=== PATIENT | male | born 1975 | race Native Hawaiian/Other Pacific Islander ===

== ENCOUNTER 2022-05-26 08:20 | Inpatient (IN) | payer MEDICAID, SELFPAY ==
[2022-05-26] VITALS (58 sets, daily range): BP systolic 131–177; BP diastolic 98–130; PULSE 54–114; RESP 0–21; TEMP 36.8–37.1; O2SAT 85–100; BMI 29.7
--- NOTE | 2022-05-26 08:27 | ECG_ITS ---
[facility] Test Date: 2022-05-26 Pat Name: John Hale Department: Room: Gender: Male Copy Room Technician: : 1975 Requested By: Tacos Reid Order Number: [id number] Gareth MD: Drew Galvan M.D. Measurements Intervals [place] Rate: 66 P: 33 ME: 188 QRS: -22 QRSD: 209 T: 95 QT: 478 QTc: 503 Interpretive Statements SINUS RHYTHM POSSIBLE LEFT ATRIAL ENLARGEMENT [-0.1mV P-WAVE IN V1/V2] LEFT BUNDLE BRANCH BLOCK [120+ ms QRS DURATION, 80+ ms Q/S IN V1/V2, 85+ ms R IN I/aVL/V5/V6] ST ELEVATION, CONSIDER LATERAL INJURY [MARKED ST ELEVATION W/O NORMALLY INFLECTED T-WAVE IN I/aVL/V5/V6] ACUTE WI No previous ECG available for comparison Electronically Signed On 05-27-2022 22:03:52 CDT by Drew Galvan M.D. [id number]
--- NOTE | 2022-05-26 08:29 | W.ED.CHESTPA ---
HPI - Chest Pain General: Chief Complaint: Chest Pain Stated Complaint: Chest Pain Time Seen by Provider: 05/26/22 08:23 Source: patient Mode of arrival: ambulatory History of Present Illness: 46-year-old male presents emergency room with complaint of chest pain that started 2 hours ago with a history of hypertension he has accompanying shortness of breath and pain radiating to the left arm. Pain is severe and crushing. He is not had any previous episodes like this before no known history of coronary artery disease no previous cardiac evaluation. Patient is not diabetic he does smoke and he does have a history of hypertension. MD complaint: chest pain Onset (ago): hour(s) (2) Timing of current episode: constant Prior episodes: No Onset: during rest Pain location: substernal Pain radiation: right arm and left arm Severity: severe Quality: tightness, aching and heaviness Relieving factors: nitroglycerin (Started after arrival in the emergency room) Exacerbating factors: nothing Associated symptoms: Reports diaphoresis, dyspnea and nausea; Deny abdominal pain, fever(s), leg edema, palpitations, sense of impending doom, syncope or vomiting Treatment prior to arrival: none Review of Systems Const: Reports: diaphoresis; Denies: fever(s), chills, fatigue or malaise ENMT: Denies: throat pain, ear or mastoid pain, nasal discharge or nasal congestion Card: Reports: chest pain; Denies: palpitations, irregular heart rhythm, edema or syncope Resp: Reports: dyspnea; Denies: productive cough or non-productive cough GI: Reports: nausea; Denies: abdominal pain or vomiting : Denies: flank pain, difficulty urinating, dysuria, urinary frequency or urinary urgency Skin/Breast: Denies: rash or pruritus PFSH ED PFSH: Medical History Atherosclerosis of coronary artery Hypertension ST elevation myocardial infarction (STEMI) Surgical History No pertinent past surgical history Social History Smoking and tobacco status: current every day smoker Alcohol intake: current Physical Exam Const: GENERAL APPEARANCE: cooperative and comfortable ORIENTATION/CONSCIOUSNESS: Yes awake, Yes oriented to person, Yes oriented to place and Yes oriented to time HENMT: COMMON NORMALS: normocephalic, atraumatic and hearing grossly normal bilaterally HEAD & SCALP: normocephalic and atraumatic Eye: COMMON NORMALS: Equal, round and reactive pupils present, EOMs intact bilaterally, conjunctivae normal and no scleral icterus CONJUNCTIVA: Yes conjunctivae normal PUPIL: Yes Equal, round and reactive pupils present Neck/C-Spine: COMMON NORMALS: full ROM, no lymphadenopathy, supple and no JVD Lymph: LYMPHATIC: no lymphadenopathy noted and no lymphedema noted Resp: COMMON NORMALS: normal respiratory effort, No retractions, No use of accessory muscles and clear to auscultation bilaterally AUSCULTATION: clear to auscultation bilaterally Cardio: COMMON NORMALS: no JVD, regular rate, regular rhythm and No murmurs present (Cardio) RATE: regular rate RHYTHM: regular rhythm GI: COMMON NORMALS: Soft to palpation and No hepatosplenomegaly present AUSCULTATION: Yes normoactive bowel sounds PALPATION: Yes Soft to palpation, No Tenderness to palpation present (GI), No Guarding due to palpation present (GI) and Yes No hepatosplenomegaly present Extremity: COMMON NORMALS: normal to inspection, capillary refill normal, no clubbing, cyanosis or edema, no calf tenderness and no pedal edema Neuro: SENSORIUM/ORIENTATION: Yes oriented to person, Yes oriented to place and Yes oriented to time Skin: COMMON NORMALS: no rashes or lesions noted GENERAL SKIN EXAM: no rashes or lesions noted Course Vital Signs: Vital signs: Vital Signs Temperature 98.2 F 05/28/22 14:52 Pulse Rate 65 05/28/22 14:52 Respiratory Rate 19 H 05/28/22 14:52 Blood Pressure 122/81 05/28/22 14:52 Pulse Oximetry 96 05/28/22 14:52 Oxygen Delivery Me thod 05/28/22 09:18 MDM - Chest Pain Medical Decision Making EKG shows STEMI with what appears to be a new left bundle branch block, we do not have any old EKGs to compare to. Additionally the ST elevation in the anterior lateral leads meets criteria with greater than 5 mm in leads V2 through V5. Patient has continued chest pain that is alleviated somewhat by initiating nitro. Is been given Plavix heparin and aspirin. Nitro drip has been initiated. Dr. Sanchez has seen the patient in the department and evaluated the EKG and the patient is discussed treatment with the patient and they are proceeding to the cardiac Forest Examiner. Lab Data I reviewed the patient's lab results. : 05/28/22 02:52 05/28/22 02:52 Radiology Impressions Chest X-Ray 05/26/22 10:27 IMPRESSION: 1. Cardiomegaly. 2. Prominent interstitial markings can be seen with pulmonary edema raising concern for congestive heart failure. Laboratory Results WBC 11.7 10^3/uL (4.0-10.0) H 05/26/22 08:34 RBC 6.00 10^6/uL (4.1-5.3) H 05/26/22 08:34 Hgb 17.9 g/dL (11.7-16.6) H 05/26/22 08:34 Hct 55.7 % (42.0-52.0) H 05/26/22 08:34 MCV 92.8 fl (80-94) 05/26/22 08:34 MCH 29.8 pg (28.0-34.0) 05/26/22 08:34 MCHC 32.1 g/dL (30.0-36.0) 05/26/22 08:34 RDW 14.6 % (12.1-15.1) 05/26/22 08:34 Plt Count 336 10^3/cmm (130-400) 05/26/22 08:34 MPV 9.6 fL (7.4-10.4) 05/26/22 08:34 Neut % (Auto) 61.0 % 05/26/22 08:34 Lymph % (Auto) 33.4 % 05/26/22 08:34 Miller % (Auto) 4.0 % 05/26/22 08:34 Eos % (Auto) 0.8 % 05/26/22 08:34 Baso % (Auto) 0.5 % 05/26/22 08:34 Neut # (Auto) 7.11 10^3/uL (1.8-7.7) 05/26/22 08:34 Lymph # (Auto) 3.9 10^3/uL (0.8-4.8) 05/26/22 08:34 Miller # (Auto) 0.5 10^3/uL (0.2-0.9) 05/26/22 08:34 Eos # (Auto) 0.1 10^3/uL (0.0-0.8) 05/26/22 08:34 Baso # (Auto) 0.1 10^3/uL (0.0-0.1) 05/26/22 08:34 Nucleated RBC % (auto) 0 % 05/26/22 08:34 Nucleated RBCs # 0.0 /100WBC 05/26/22 08:34 Sodium 131 mmol/L (136-145) L 05/26/22 08:34 Potassium 4.8 mmol/L (3.5-5.1) 05/26/22 08:34 Chloride 98 mmol/L (98-107) 05/26/22 08:34 Carbon Dioxide 21 mmol/L (22-29) L 05/26/22 08:34 Anion Gap 16.8 (5-19) 05/26/22 08:34 BUN 58 mg/dL (6-20) H 05/26/22 08:34 Creatinine 3.0 mg/dL (0.7-1.2) H 05/26/22 08:34 GFR Calculation 22.8 mL/min (90-130) L 05/26/22 08:34 Glucose 142 mg/dL (65-115) H 05/26/22 08:34 Calculated Osmolality 291 mOsm/kg (285-295) 05/26/22 08:34 Calcium 9.0 mg/dL (8.5-10.5) 05/26/22 08:34 Total Bilirubin 0.5 mg/dL (0.15-1.2) 05/26/22 08:34 AST 29 U/L (0-40) 05/26/22 08:34 ALT 45 U/L (0-41) H 05/26/22 08:34 Alkaline Phosphatase 179 U/L (40-130) H 05/26/22 08:34 Troponin T Baseline 18 ng/L (0-15) H 05/26/22 08:34 Total Protein 8.0 g/dL (6.6-8.7) 05/26/22 08:34 Albumin 3.7 g/dL (3.5-5.2) 05/26/22 08:34 Globulin 4.3 g/dL (1.3-4.6) 05/26/22 08:34 Discharge Plan Discharge Patient Disposition: Admitted As Inpatient Admit Provider: Drew Galvan Clinical Impression: ST elevation myocardial infarction (STEMI), Hypertension, Tobacco abuse Condition: Stable Discharge Diet: Cardiac and Low Salt Discharge Activity: Increase activity as tolerated Coding Level of Care Code ED Carpenter Labor Supervisor for Joceling Fwd Exam Comprehensive
[2022-05-26] MEDS: nitroglycerin drip 50 MG/250 ML PREMIX IV (08:30)
[2022-05-26] MEDS: heparin 5,000 unit/mL INJ 1 mL 4000 UNIT IVP (08:34)
[2022-05-26] MEDS: morphine 4 mg/mL SDV 1 mL IVP ×2 (08:35→09:06)
[2022-05-26] MEDS: aspirin 81 mg Chew Tablet 324 MG PO (08:35)
[2022-05-26] MEDS: clopidogrel 300 mg Tablet 600 MG PO (08:35)
[2022-05-26] MEDS: ondansetron 2 mg/ML SDV 2 mL 4 MG IVP (08:36)
--- NOTE | 2022-05-26 08:44 | XACV_ITS ---
[facility] H[facility]: 185 cm Wt: 102 kg BSA: 2.31 m2 Gender: Male : 1975 Exam Priority: Routine Procedure(s): Procedure Description: Diagnostic procedure Procedure Description: PCI procedure Procedure Description: Drug Eluting Coronary Stent Procedure Description: PTCA Procedure Description: Miscellaneous Procedure Description: ACT Procedure Description: Coronary Angiography Diagnostic Cath Status: Emergency Diagnostic Findings * INDICATION: 46 year old male with past medical history of tobacco abuse and hypertension has presented with 2 hours of substernal severe chest pain. According to patient he woke up with severe chest pain. Feels that his arms are heavy. EKG shows left bundle branch block with significant ST elevation in anterior and anterolateral leads. * Mid LAD has * total thrombotic occlusion. After balloon angioplasty, it was noted that LAD bifurcates in almost dual LAD system with a very large sized diagonal artery.. * Circumflex has no significant disease. * Right Coronary Artery has no known disease. * Left Main has no disease. * Coronary angiography shows right dominance. PCI Status: Emergency PCI Indication: STEMI - Immediate PCI for STEMI Interventional Findings * Mid Left Anterior Descendin% stenosis treated with a TREK 3.00X12 RX BALLOON, REGINALD Núñez VITO 3.5X22 LINDSEY, and REGINALD MONET EUPHORA RX 3.21G47YM BALLOON. 0% residual stenosis, ARIANA: 3 flow. * Procedure detail:We engaged left main artery with XB 3.5 guide catheter. IV heparin was administered to maintain ACT above 250 S. we used 0.014 run-through guidewire to cross totally occluded mid LAD artery and was put in distal diagonal artery. We predilated lesion with 3.0 x 12 mm compliant balloon. This reestablished flow. Dual LAD system was seen with a very large sized diagonal artery. Apical LAD still had total thrombotic occlusion. A second run-through guidewire was put in the LAD artery. We dilated apical LAD with 2.5mm semicompliant balloon. We then placed 3.5 x 22 mm resolute [place] drug-eluting stent from mid LAD into diagonal artery. Proximal part of stent was postdilated with 3.75 x 8 mm NC balloon. Mid LAD post stenting was predilated with 2.5 mm balloon. At this time final angiogram was performed that showed excellent stent expansion, no residual stenosis and ARIANA-3 flow and diagonal artery. Apical LAD flow could not be restored and we decided to keep patient on Aggrastat and medically treated.. Conclusions 1. Total thrombotic occlusion of mid LAD s/p successful revascularization with LINDSEY x1.. 2. Mid Left Anterior Descending was treated with a Balloon, Drug Eluting Stent, and Balloon. 3. Distal Left Anterior Descending was treated with a Balloon. Recommendations * Continue aspirin and Plavix for at least 1 year. * Transferred to ICU. * Aggrastat drip for 8 hours. * High intensity statin therapy. * Order echocardiogram. * Outpatient cardiology follow-up in 4 weeks. Interventional RX Recommendation: PCI w/o planned CABG Diagnostic RX Recommendation: PCI w/o planned CABG Anticoagulation: Heparin Pressures Phase:Rest AO : 135 / 119 ( 129 ) @ 10:20:00 AM 145 / 113 ( 126 ) @ 10:24:00 AM 136 / 111 ( 123 ) @ 10:29:00 AM 116 / 93 ( 103 ) @ 10:39:00 AM 141 / 102 ( 117 ) @ 10:52:00 AM Clinical Evaluation EBL: 5mL-10mL Procedural Details Procedure Consent Obtained. Admit Source: Emergency department. Pre-Procedure Time Out. Identified patient by full name and date of as verbalized by the patient/guarantor. Does the consent match the physician's order: Yes. Accurate & Complete Informed Consent: Yes. Inpatient/Outpatient History & Physical on Chart: N/A Emergent. If H&P is completed, is and addenduem needed: N/A Emergent; If yes, is the addendum complete: N/A Emergent. Visualize and Verify Site with Patient/Guarantor: N/A. Relevant Radiology Images available: N/A. Pre-op teaching completed and patient verbalized understanding. The risks, benefits, and alternatives of sedation and/or procedure were discussed by physician. The patient agrees to continue. Procedure started. [facility] Clinical Fraility Score: 2: Well. Machine Assistant Indications: ACS <= 24 hours. Chest Pain Symptom Assessment: Typical Angina Symptoms. Correct patient, site and procedure confirmed by cath team. Current diagnosis: STEMI. PERRLA. Strong, equal hand glass carrier bilaterally. Lungs clear x 5 lobes. IV Site on Arrival: 18 gauge in the left hand. IV Site on Arrival: 20 gauge in the left anticubital. IV Fluids: 0.9% NaCl at KVO. 0 mL infused prior to photo lab specialist. Pre Procedural Pulses: right radial was 3+. Pre Procedural Pulses: bilateral dorsalis pedis was 2+. Oxygen started at 2liters/min via nasal canula. right groin was prepped with chloroprep then draped in the usual sterile fashion. right radial was prepped with chloroprep then draped in the usual sterile fashion. Physician notified. Baseline sample Acquired. HR: 67 BPM. Physician arrived. Physician scrubbed in. Immediate Pre-Procedure Time Out. Correct Patient: Yes; Correct Procedure: Yes; Correct Site: Yes; Correct Patient Position: Yes; Correct Supplies: Yes; Dried Flammable Prep: Yes; Blood Products Available: N/A;. Lidocaine 1% infiltrated to the right radial. Arterial access obtained. A 5 [place] TIG catheter in over wire. Multiple views taken of left coronary artery. Catheter redirected to the RCA. Multiple views taken of right coronary artery. Catheter removed over the exchange wire. PCI Indication: STEMI. 6 [place] XB 3.5 guide catheter was inserted over the wire. Runthrough guidewire was advanced through the guide catheter to lesion in the mid LAD. Nitro running at 20 gerson. Inflation number : 1 A AB TREK 3.00X12 RX BALLOON was prepped and advanced across the Mid LAD , then inflated to 12 SHEELA for 0:11 seconds. Inflation number: 2 The AB TREK 3.00X12 RX BALLOON was reinflated across the Mid LAD, to 12 SHEELA for 0:09 seconds. Results checked. Runthrough wire repositioned to diag. A second runthrough wire inserted to distal LAD. Inflation number : 1 A AB TREK 2.50X12 RX BALLOON was prepped and advanced across the Dist LAD , then inflated to 4 SHEELA for 0:18 seconds. Inflation number: 2 The AB TREK 2.50X12 RX BALLOON was reinflated across the Dist LAD, to 4 SHEELA for 0:18 seconds. Balloon out. Balloon out. Runthrough wire in diag removed. Runthrough repositioned to diaganol. Inflation Number : 3 A REGINALD Núñez VITO 3.5X22 LINDSEY -Lot Number# [id number] exp date 10/30/2024 was prepped and advanced across the Mid LAD. The stent was deployed at 12 SHEELA for 0:33 seconds. Stent balloon out over wire. Results checked. Runthrough repositioned to mid LAD. ACT drawn. Results 371 seconds. Therapeutic limits - pre-heparin administration 90-150 seconds and monitoring heparin during a vascular procedure >250 seconds. Inflation number: 3 The AB TREK 2.50X12 RX BALLOON was reinflated across the Dist LAD, to 6 SHEELA for 0:18 seconds. Inflation number: 4 The AB TREK 2.50X12 RX BALLOON was reinflated across the Dist LAD, to 8 SHEELA for 0:10 seconds. Balloon out. Inflation number : 4 A REGINALD MONET EUPHORA RX 3.13I38UW BALLOON was prepped and advanced across the Mid LAD , then inflated to 10 SHEELA for 0:18 seconds. Balloon out. Results checked. Wire out. Guide catheter out. ACT drawn. Results 232 seconds. Therapeutic limits - pre-heparin administration 90-150 seconds and monitoring heparin during a vascular procedure >250 seconds. Family updated. Physician scrubbed out. A TR Band was successful obtaining hemostatsis at the Right Radial artery insertion site. TR band placed. Hemostasis obtained. Post Procedure: Pulses reassessed and unchanged. PERRLA. Strong, equal hand glass carrier bilaterally. No VTE prophylaxis required. Medication's Wasted: Heparin = 4000 units. Contrast type used: Omnipaque 300 mgI/mL, 500 mL bottle. Total IV fluids: 80 mL. Post-op diagnosis: stemi. PCI Indication: STEMI. Complications: none. Estimated blood loss: 5mL-10mL. Responsiveness - Normal response to verbal stimuli; alert and oriented, PERRLA. Airway - Unaffected, no intervention required; spontaneous ventilation. Circulation: W/N/L, pulses unchanged. Nausea/Vomiting: No. Procedure completed. Patient transferred by bed to ICU. Critical result creatinine [address] Galvan. Abimbola Trejo RN was relieved by Ravi Warren RRT as monitoring person. Access Site Site: Right Radial artery Sheath Size: 6 Fr Hemostasis Method: TR Band Hemostasis Success: Successful Procedure Medications Start: 9:16 AM Stop: 9:16 AM Medication: Versed Amount: 1 mg Route: I.V. Start: 9:17 AM Stop: 9:17 AM Medication: Nitrogylcerin Amount: 200 mcg Route: I.A. Start: 9:18 AM Stop: 9:18 AM Medication: Versed Amount: 1 mg Route: I.V. Start: 9:22 AM Stop: 9:22 AM Medication: Heparin Amount: 5000 units Route: I.V. Start: 9:24 AM Stop: 9:24 AM Medication: Fentanyl Amount: 50 mcg Route: I.V. Start: 9:28 AM Stop: 9:28 AM Medication: Fentanyl Amount: 50 mcg Route: I.V. Start: 9:31 AM Stop: 9:31 AM Medication: Heparin Amount: 2000 units Route: I.V. Start: 9:42 AM Stop: 9:42 AM Medication: Aggrastat 12.5 mg/250 mL Amount: 51 ml Route: I.V. bolus Start: 9:43 AM Stop: 9:43 AM Medication: Aggrastat 12.5 mg/250 mL Amount: 18.4 ml/hr Route: I.V. drip Start: 9:51 AM Stop: 9:51 AM Medication: Nitrogylcerin Amount: 200 mcg Route: I.C. I, the attending physician, have reviewed and verified all procedure medications. Yes, all medications given per verbal order History/Risk Factors Hypertension: No Dyslipidemia: No Peripheral Arterial Disease (PAD): No Myocardial Infarction (NM): No Obesity: No Renal Disease: No Prior Interventions PCI: No CABG: No Valve Surgery: No Report Signatures Finalized by Drew Galvan MD on 05/31/2022 11:09 AM
--- NOTE | 2022-05-26 08:57 | P.HP_ITS ---
Providers/Chief Complaint Admitting Physician: Drew Galvan MD Primary Care Provider: WILLIAM Peacock Chief Complaint: Chest Pain/ Left bundle branch block History of Present Illness John Hale is a 46 year old male with past medical history of tobacco abuse and hypertension has presented with 2 hours of substernal severe chest pain. According to patient he woke up with severe chest pain. Feels that his arms are heavy. EKG shows left bundle branch block with significant ST elevation in anterior and anterolateral leads. His blood pressure is high. Review of Systems Const: Reports: diaphoresis; Denies: fever(s), chills, fatigue or malaise ENMT: Denies: throat pain, ear or mastoid pain, nasal discharge or nasal congestion Card: Reports: chest pain; Denies: palpitations, irregular heart rhythm, edema or syncope Resp: Reports: dyspnea; Denies: productive cough or non-productive cough GI: Reports: nausea; Denies: abdominal pain or vomiting : Denies: flank pain, difficulty urinating, dysuria, urinary frequency or urinary urgency Skin/Breast: Denies: rash or pruritus PFSH Acute PFSH: Medical History Hypertension Surgical History No pertinent past surgical history Social History Smoking and tobacco status: current every day smoker Alcohol intake: current Vitals/I&O/Wt Last Vital Signs Pulse 114 H 05/26/22 08:55 Resp 18 05/26/22 08:55 BP 162/117 05/26/22 08:55 Pulse Ox 94 05/26/22 08:55 O2 Del Method 05/26/22 08:55 05/25/22 05/26/22 05/26/22 22:59 06:59 14:59 Intake Total 1.475 / 1.475 Balance 1.475 / 1.475 Weight last 48 hrs Weight 225 lb Physical Exam Narrative: GENERAL: Patient is alert, awake and oriented x3. [] NECK: No jugular vein distension. [] HEENT: No cyanosis. No icterus. No pallor. [] HEART: Regular S1 and S2. No murmur, rub or gallop. [] LUNGS: Clear to auscultate bilaterally. [] ABDOMEN: Soft, nontender and nondistended. Positive bowel sounds. No guarding, rebound or tenderness. [] CENTRAL NERVOUS SYSTEM: Grossly nonfocal. [] EXTREMITIES: Lower extremities with no edema bilaterally. Pulses palpable in the lower extremities, both dorsalis pedis and posterior tibial. [] Data : 05/26/22 08:34 05/26/22 08:34 A&P Assessment and plan (1) ST elevation myocardial infarction (STEMI): (2) Hypertension: (3) Tobacco abuse: Plan Patient has presented with severe, typical chest pain and has left bundle branch block on the EKG. ST segments are significantly elevated in the anterior leads and anterolateral leads. Advertising Assistant Manager activated emergently. Patient has been loaded with aspirin and Plavix. Also given heparin bolus. We will order echocardiogram Trend troponins. Labs ordered and are pending. Attestations Medical Necessity Statement*: Care expected to cross 2 midnights. Patient was presented with last elevation [place]. Going for emergent cardiac catheterization with possible percutaneous coronary intervention. Coding Level of Care Code Acute Foot Doctor for [facility] Eliezer Diagnoses ST elevation myocardial infarction (STEMI) I21.3 Hypertension I10 Tobacco abuse Z72.0
[2022-05-26 09:00] LABS: Basophils # 0.1 10^3/uL (0.0-0.1); Basophils % 0.5 %; Eosinophils # 0.1 10^3/uL (0.0-0.8); Eosinophils % 0.8 %; Hematocrit 55.7 % (42.0-52.0); Hemoglobin 17.9 g/dL (11.7-16.6); Lymphocytes # 3.9 10^3/uL (0.8-4.8); Lymphocytes % 33.4 %; Mean Corpuscular HGB Conc 32.1 g/dL (30.0-36.0); Mean Corpuscular Hemoglobin 29.8 pg (28.0-34.0); Mean Corpuscular Volume 92.8 fl (80-94); Mean Platelet Volume 9.6 fL (7.4-10.4); Monocytes # 0.5 10^3/uL (0.2-0.9); Neutrophils # 7.11 10^3/uL (1.8-7.7); Nucleated Red Blood Cells % 0 %; Platelet Count 336 10^3/cmm (130-400); Red Cell Distribution Width 14.6 % (12.1-15.1); White Blood Count 11.7 10^3/uL (4.0-10.0)
--- NOTE | 2022-05-26 09:07 | PC.NURSE ---
Bedside report given to director of cardiac cath lab nurse. Patient transported in care of labor relations director team, mother with patient.
[2022-05-26 09:31] LABS: Alanine Aminotransferase 45 U/L (0-41); Albumin Level 3.7 g/dL (3.5-5.2); Alkaline Phosphatase 179 U/L (40-130); Blood Urea Nitrogen 58 mg/dL (6-20); Carbon Dioxide 21 mmol/L (22-29); Chloride 98 mmol/L (98-107); Globulin 4.3 g/dL (1.3-4.6); Glomerular Filtration Rate 22.8 mL/min (90-130); Glucose 142 mg/dL (65-115); Osmolality Calculated 291 mOsm/kg (285-295); Sodium 131 mmol/L (136-145); Total Bilirubin 0.5 mg/dL (0.15-1.2)
[2022-05-26 09:34] LABS: Troponin(5th) Baseline 18 ng/L (0-15)
[2022-05-26 09:50] LABS: Anion Gap 16.8 (5-19)
[2022-05-26 09:51] LABS: Aspartate Amino Transferase 29 U/L (0-40); Potassium 4.8 mmol/L (3.5-5.1)
--- NOTE | 2022-05-26 10:27 | XRR_ITS ---
PROCEDURE INFORMATION: Exam: XR Chest Exam date and time: 05/26/2022 11:43 AM Age: 46 years old Clinical indication: Pain; Angina pectoris; Additional info: Post stemi TECHNIQUE: Imaging protocol: Radiologic exam of the chest. Views: 1 view. COMPARISON: No relevant prior studies available. FINDINGS: Lungs: There are prominent interstitial markings. Pleural spaces: Unremarkable. No pleural effusion. No pneumothorax. Heart/Mediastinum: Cardiomegaly. There are calcified mediastinal and perihilar lymph nodes consistent with prior granulomatous exposure. Bones/joints: Unremarkable. XR/XR chest 1V [id number] IMPRESSION: 1. Cardiomegaly. 2. Prominent interstitial markings can be seen with pulmonary edema raising concern for congestive heart failure.
--- NOTE | 2022-05-26 10:33 | ECG_ITS ---
[facility] Test Date: 2022-05-26 Pat Name: John Hale Department: Room: Gender: Male School Manager: : 1975 Requested By: Tacos Reid Order Number: [id number] Gareth MD: Drew Galvan M.D. Measurements Intervals [place] Rate: 72 P: 63 NE: 198 QRS: -28 QRSD: 205 T: 118 QT: 477 QTc: 525 Interpretive Statements SINUS RHYTHM RIGHT ATRIAL ENLARGEMENT [0.3mV P-WAVE] LEFT ATRIAL ENLARGEMENT [-0.15mV P-WAVE IN V1/V2] LEFT BUNDLE BRANCH BLOCK [120+ ms QRS DURATION, 80+ ms Q/S IN V1/V2, 85+ ms R IN I/aVL/V5/V6] Compared to ECG 05/26/2022 08:27:23 ST (T wave) deviation no longer present Myocardial infarct finding no longer present Electronically Signed On 05-27-2022 22:07:35 CDT by Drew Galvan M.D. [email or web address]
--- NOTE | 2022-05-26 10:36 | USCV_ITS ---
John Hale Age: 46 Gender: M : 1975 Exam Date: 05/26/2022 11:01 Ordering Phys: Drew Galvan M.D ([email or web address]) Technologist: Reji Smith Exam Location: [facility] – [place] Indication: post stemi BP: 148 / 107 HR: 71 Rhythm: Sinus Technical Quality: Adequate MEASUREMENTS (Male / Female) Normal Values 2D ECHO LV Diastolic Diameter PLAX 5.8 cm 4.2 - 5.9 / 3.9 - 5.3 cm LV Systolic Diameter PLAX 5.5 cm IVS Diastolic Thickness 1.3 cm 0.6 - 1.0 / 0.6 - 0.9 cm IVS Systolic Thickness 1.6 cm LVPW Diastolic Thickness 1.6 cm 0.6 - 1.0 / 0.6 - 0.9 cm LVPW Systolic Thickness 1.8 cm LVOT Diameter 2.5 cm LV Ejection Fraction 2D Teich 11.9 % LV Ejection Fraction MOD 2C 36.7 % LV Ejection Fraction 2C AL 36.5 % LA Diameter 3.9 cm Aorta at Sinotubular Diameter 3.2 cm IVC Diameter 1.2 cm M-MODE Aortic Annulus Diameter 3.5 cm LA Ao Ratio MM 1.1 MV E Point Septal Separation 3.0 cm DOPPLER AV Peak Velocity 106.0 cm/s LVOT Peak Velocity 96.0 cm/s AV Area Cont Eq vti 4.8 cm squared AV Area Cont Eq pk 4.4 cm squared MV Area PHT 5.0 cm squared Mitral E to A Ratio 2.5 MV E' Velocity 110.0 cm/s Mitral E to LV E' Septal Ratio 39.4 TR Peak Velocity 320.7 cm/s TR Peak Gradient 41.1 mmHg TV Peak E Velocity 61.0 cm/s Right Atrial Pressure 3.0 mmHg Pulmonary Artery Systolic Pressu 44.1 mmHg PV Peak Velocity 73.0 cm/s FINDINGS Left Ventricle Left ventricle is dilated. LV systolic function is severely reduced with EF of 15 to 20%. Severe global hypokinesis seen. Apical akinesis Right Ventricle Right ventricle has mildly reduced function. Right Atrium Normal in size Left Atrium Left atrial enlargement. Mitral Valve Mitral valve is structurally normal. Mitral regurgitation. Aortic Valve Aortic valve is thickened. No significant stenosis. Mild aortic regurgitation Tricuspid Valve Mild tricuspid regurgitation. RVSP is 35 to 40 mmHg. This is consistent with mild pulmonary hypertension. Pulmonic Valve Not well-visualized Pericardium Grossly normal Aorta Aorta is normal in size. IVC IVC appears to be normal CONCLUSIONS Left ventricle is dilated. LV systolic function is severely reduced with EF 15 to 20%. Severe global hypokinesis is seen. Apical akinesis. RV has mildly reduced function Left atrial enlargement seen. Mild mitral regurgitation. Mild tricuspid regurgitation. Mild pulmonary hypertension Mild aortic regurgitation. No comparison studies are available Drew Galvan MD (Electronically Signed) Final Date: 26 May 2022 21:51 S
[2022-05-26] MEDS: sodium chloride 0.9% 1,000 ML 100 ML IV (11:02)
[2022-05-26] MEDS: amlodipine 5 mg Tablet PO (11:35)
[2022-05-26] MEDS: metoprolol tartrate 50 mg Tablet PO ×2 (11:35→20:15)
[2022-05-26 15:02] LABS: Troponin 5 6HR 4803 ng/L (0-15); Troponin 5 6HR Delta 4785 ng/L (0-12)
--- NOTE | 2022-05-26 15:33 | PC.NURSE ---
Patient family brought home medications that were reviewed and discussed with Dr. Galvan. Orders placed to continue home dosage and meds ,this nurse discussed with family and decision was made by family to take all home medications back home with patients mother.
--- NOTE | 2022-05-26 16:08 | PC.NURSE ---
Orders from Dr. Galvan continued from Allied Health Instructor for Aggrastat to continue until 1800 at regular rate per kg. Dose 12.2 ml/hr. Running since arrival in ICU at 1007.
--- NOTE | 2022-05-26 16:33 | ECG_ITS ---
[facility] Test Date: 2022-05-26 Pat Name: John Hale Department: Room: ICU11 Gender: Male Report Checker: : 1975 Requested By: Tacos Reid Order Number: [id number] Gareth MD: Drew Galvan M.D. Measurements Intervals [place] Rate: 61 P: 50 NE: 215 QRS: -4 QRSD: 201 T: 90 QT: 497 QTc: 504 Interpretive Statements SINUS RHYTHM WITH FIRST DEGREE AV BLOCK POSSIBLE RIGHT ATRIAL ENLARGEMENT [0.25mV P-WAVE] LEFT ATRIAL ENLARGEMENT [-0.15mV P-WAVE IN V1/V2] LEFT BUNDLE BRANCH BLOCK [120+ ms QRS DURATION, 80+ ms Q/S IN V1/V2, 85+ ms R IN I/aVL/V5/V6] Compared to ECG 05/26/2022 10:33:36 First degree AV block now present Electronically Signed On 05-27-2022 22:06:29 CDT by Drew Galvan M.D. [id number]
--- NOTE | 2022-05-26 19:04 | PC.NURSE ---
Aggristat ran until [address] Galvan. Verified with Raji in Pharmacy on proper charges as patient arrived to ICU from [employer] with one bag running, and two extras for administration untill 1800. One bag not needed and placed in Pharmacy return box in ICU med room. Patient charged properly as ICU did not need third bag.
[2022-05-27 05:38] LABS: Basophils # 0.1 10^3/uL (0.0-0.1); Basophils % 0.6 %; Eosinophils # 0.1 10^3/uL (0.0-0.8); Eosinophils % 0.8 %; Hemoglobin 16.8 g/dL (11.7-16.6); Lymphocytes # 2.8 10^3/uL (0.8-4.8); Lymphocytes % 25.7 %; Mean Corpuscular HGB Conc 31.7 g/dL (30.0-36.0); Mean Corpuscular Hemoglobin 29.1 pg (28.0-34.0); Mean Corpuscular Volume 91.9 fl (80-94); Mean Platelet Volume 9.8 fL (7.4-10.4); Monocytes # 0.6 10^3/uL (0.2-0.9); Monocytes % 5.3 %; Neutrophils # 7.21 10^3/uL (1.8-7.7); Neutrophils % 67.2 %; Nucleated Red Blood Cells % 0 %; Platelet Count 314 10^3/cmm (130-400); Red Blood Count 5.77 10^6/uL (4.1-5.3); Red Cell Distribution Width 14.7 % (12.1-15.1); White Blood Count 10.7 10^3/uL (4.0-10.0)
[2022-05-27 05:43] VITALS: PULSE 65
[2022-05-27 06:08] LABS: Blood Urea Nitrogen 54 mg/dL (6-20); Calcium 9.1 mg/dL (8.5-10.5); Carbon Dioxide 19 mmol/L (22-29); Chloride 101 mmol/L (98-107); Glomerular Filtration Rate 25.8 mL/min (90-130); Glucose 96 mg/dL (65-115); Osmolality Calculated 283 mOsm/kg (285-295); Sodium 129 mmol/L (136-145)
[2022-05-27] MEDS: FUROsemide 20 mg Tablet PO (07:32)
[2022-05-27] MEDS: aspirin 81 mg EC Tablet PO (08:09)
[2022-05-27] MEDS: clopidogrel 75 mg Tablet PO (08:09)
[2022-05-27] MEDS: metoprolol tartrate 50 mg Tablet PO ×2 (08:09→20:49)
[2022-05-27] MEDS: amlodipine 10 mg Tablet PO (08:10)
--- NOTE | 2022-05-27 09:14 | P.PN_ITS ---
Subjective Subjective: Patient is overall doing well. Denies complaints of chest pain or shortness of breath. His renal function has improved compared to yesterday. Echocardiogram showed severely reduced LV systolic function Vitals/I&O/Wt Last Vital Signs Temp 98.2 F 05/26/22 20:00 Pulse 65 05/27/22 05:43 Resp 19 H 05/26/22 23:55 BP 133/102 05/26/22 23:55 Pulse Ox 89 L 05/26/22 23:55 O2 Del Method 05/26/22 11:20 05/26/22 05/27/22 05/27/22 22:59 06:59 14:59 Intake Total 586 / 1264.142 360 / 360 Output Total 1000 / 1000 650 / 1650 400 / 400 Balance -414 / 264.142 -650 / -385.858 -40 / -40 Weight last 48 hrs Weight 225 lb Weight 225 lb Physical Exam Narrative: GENERAL: Patient is alert, awake and oriented x3. [] NECK: No jugular vein distension. [] HEENT: No cyanosis. No icterus. No pallor. [] HEART: Regular S1 and S2. No murmur, rub or gallop. [] LUNGS: Mild crackles bilaterally ABDOMEN: Soft, nontender and nondistended. Positive bowel sounds. No guarding, rebound or tenderness. [] CENTRAL NERVOUS SYSTEM: Grossly nonfocal. [] EXTREMITIES: Lower extremities with no edema bilaterally. Pulses palpable in the lower extremities, both dorsalis pedis and posterior tibial. [] Data : 05/27/22 05:05 05/27/22 05:05 A&P Assessment and plan (1) ST elevation myocardial infarction (STEMI): (2) Hypertension: (3) Tobacco abuse: (4) CKD (chronic kidney disease): (5) HFrEF (heart failure with reduced ejection fraction): Plan Patient had undergone successful revascularization of mid LAD yesterday with LINDSEY x1. He has severely reduced LV systolic function. Was found to have significant renal dysfunction and later informed that he has a history of CKD. Creatinine was 3. With IV hydration his creatinine has improved to 2.7. We will continue to monitor. Continue aspirin and Plavix. Metoprolol 50 mg twice daily initiated. Also on amlodipine 10 mg daily. We will hold off on lisinopril for now secondary to kidney dysfunction. We will repeat limited echo with contrast to rule out LV thrombus. Patient will need LifeVest prior to discharge. Attestations Medical Necessity Statement*: Care expected to cross 2 midnights. Patient presented with acute ST elevation DE and underwent successful revascularization with LINDSEY x1. Coding Level of Care Code Acute Railroad Dining Car Stewardess for Joceling Fwd Diagnoses ST elevation myocardial infarction (STEMI) I21.3 Hypertension I10 Tobacco abuse Z72.0 CKD (chronic kidney disease) N18.9 HFrEF (heart failure with reduced ejection fraction) I50.20
[2022-05-27] MEDS: FUROsemide 10 mg/mL SDV 2mL 20 MG IVP (11:51)
[2022-05-27 14:00] VITALS: PULSE 59
--- NOTE | 2022-05-27 14:30 | USCV_ITS ---
John Hale Age: 46 Gender: M : 1975 Exam Date: 05/27/2022 15:16 Ordering Phys: Drew Galvan M.D ([email or web address]) Technologist: Reji Smith Exam Location: [facility] – [place] Indication: ? thrombus BP: / HR: Rhythm: Sinus Technical Quality: Adequate MEASUREMENTS (Male / Female) Normal Values 2D ECHO LV Ejection Fraction MOD 2C 18.0 % LV Ejection Fraction 2C AL 18.6 % FINDINGS Left Ventricle Right Ventricle Right Atrium Left Atrium Mitral Valve Aortic Valve Tricuspid Valve Pulmonic Valve Pericardium Aorta IVC CONCLUSIONS This is a limited echocardiogram performed to rule out LV thrombus. Echo contrast was administered to opacify LV cavity. LV systolic function is severely reduced with EF of 15 to 20%. Severe global hypokinesis. No significant changes seen from prior echocardiogram performed on 05/26/2022. No evidence of LV thrombus seen. Drew Galvan MD (Electronically Signed) Final Date: 27 May 2022 21:09 S
[2022-05-27] MEDS: perflutren protein-a microsphr 0.22 mg/mL SDV 3 mL IV (15:11)
[2022-05-27 22:00] VITALS: PULSE 60
[2022-05-27 23:00] VITALS: BP 133/102; PULSE 60; RESP 19; TEMP 36.8; O2SAT 89
[2022-05-28 03:13] LABS: Basophils % 0.4 %; Eosinophils # 0.1 10^3/uL (0.0-0.8); Eosinophils % 0.7 %; Hematocrit 50.5 % (42.0-52.0); Hemoglobin 16.3 g/dL (11.7-16.6); Lymphocytes # 2.7 10^3/uL (0.8-4.8); Lymphocytes % 24.3 %; Mean Corpuscular HGB Conc 32.3 g/dL (30.0-36.0); Mean Corpuscular Hemoglobin 29.3 pg (28.0-34.0); Mean Corpuscular Volume 90.7 fl (80-94); Mean Platelet Volume 9.5 fL (7.4-10.4); Monocytes # 0.6 10^3/uL (0.2-0.9); Monocytes % 5.3 %; Neutrophils # 7.51 10^3/uL (1.8-7.7); Nucleated Red Blood Cells % 0 %; Platelet Count 282 10^3/cmm (130-400); Red Blood Count 5.57 10^6/uL (4.1-5.3); Red Cell Distribution Width 14.4 % (12.1-15.1); White Blood Count 10.9 10^3/uL (4.0-10.0)
[2022-05-28 03:40] LABS: Anion Gap 15.5 (5-19); Blood Urea Nitrogen 49 mg/dL (6-20); Carbon Dioxide 23 mmol/L (22-29); Chloride 99 mmol/L (98-107); Glomerular Filtration Rate 28.2 mL/min (90-130); Glucose 97 mg/dL (65-115); Osmolality Calculated 289 mOsm/kg (285-295); Potassium 4.5 mmol/L (3.5-5.1); Sodium 133 mmol/L (136-145)
[2022-05-28 06:00] VITALS: PULSE 56
[2022-05-28] MEDS: FUROsemide 20 mg Tablet PO (08:00)
[2022-05-28] MEDS: clopidogrel 75 mg Tablet PO (08:01)
[2022-05-28] MEDS: amlodipine 10 mg Tablet PO (08:01)
[2022-05-28] MEDS: metoprolol tartrate 50 mg Tablet PO (08:01)
[2022-05-28] MEDS: aspirin 81 mg EC Tablet PO (08:01)
[2022-05-28 09:18] VITALS: PULSE 54; O2SAT 96
--- NOTE | 2022-05-28 10:43 | PC.CHAP ---
Pastoral Care Encounter/Spiritual Assessment Type of Contact [] Declined prime minister visit [] Patient/Family/Request visit [] Outpatient visit [] Follow-up visit [] Physician referral [] Code/Alert [x] Routine visit [] Staff referral [] Actively dying [x] Patient sleeping [] Family support [] [] Out of room [] Palliative care [] [] Receiving care in room [] Pre-surgical visit [] Trauma [] Long length of stay [x] ICU visit [] Other: Relational/Emotional Strength [] Patient feels connected with others/family/visitors/staff [] Distress [] Loneliness/isolation [] Abandonment Spirituality of Patient [] Person of Irene [] Attends Restorationist of their Irene [] Believes in Prayer [] Reads Bible or Quaker materials [] There are Spiritual issues to be addressed Reeling Operator Interventions [x] Prayer [] Active listening [] Non-anxious presence [] Spiritual/emotional support [] Crisis/trauma care [] Spiritual counseling [] Bereavement support [] Provided bereavement packet [] Provided Bible/devotional materials [] Provided toy/stuffed animal, coloring book to patient or family member [] Provided Communion [] Anointing/[place] [] Salvation [x] Completed spiritual assessment [] Other: Impact on Illness or Injury [] Angry [] Fearful [] Anxious [] Often cries [] Exhaustion [] Unable to work [] Unable to attend restorationism [] Unable to walk/stand [] Unable to read [] Unable to drive [] Unable to eat/drink [] Unable to sleep [] Unable to be with family [] Patient intubated [] Other: Summary Time spent with patient
--- NOTE | 2022-05-28 12:26 | PM.DCS ---
Discharge Providers Date of Admission: 05/26/22 10:42 Date of Discharge: May 28, 2022 Attending Provider at Admission: Drew Galvan M.D Attending Provider at Discharge: Drew Galvan M.D Primary Care Provider: WILLIAM Peacock Diagnoses at Discharge Discharge Diagnosis (1) ST elevation myocardial infarction (STEMI): Status: Inactive (2) Hypertension: Status: Acute (3) Tobacco abuse: Status: Acute (4) CKD (chronic kidney disease): Status: Acute (5) HFrEF (heart failure with reduced ejection fraction): Status: Acute Reason for Visit Reason for Visit: Chest Pain/ Left bundle branch block Brief History: 46 year old male with past medical history of tobacco abuse and hypertension has presented with 2 hours of substernal severe chest pain.? According to patient he woke up with severe chest pain.? Feels that his arms are heavy.? EKG shows left bundle branch block with significant ST elevation in anterior and anterolateral leads.? His blood pressure is high. Hospital Course Hospital Course Patient underwent emergent cardiac catheterization that showed total thrombotic occlusion of mid LAD. He underwent successful revascularization of mid LAD with LINDSEY x1. IV hydration was administered as his original creatinine was 3. He has CKD. Echocardiogram showed severely reduced LV systolic function. He stayed stable over the next 2 days. Renal function improved from baseline on initial presentation. LifeVest was ordered however was not approved till patient's discharge. He did not want to wait more to get LifeVest and wanted to be discharged. He was discharged in stable condition. Dual antiplatelet therapy with aspirin and Plavix was ordered. He will follow-up with his geophysics teacher to decide initiation of TATUM inhibitor/Entresto. Smoking cessation highly recommended. Physical Exam Narrative: GENERAL: Patient is alert, awake and oriented x3. [] NECK: No jugular vein distension. [] HEENT: No cyanosis. No icterus. No pallor. [] HEART: Regular S1 and S2. No murmur, rub or gallop. [] LUNGS: Clear to auscultation bilaterally ABDOMEN: Soft, nontender and nondistended. Positive bowel sounds. No guarding, rebound or tenderness. [] CENTRAL NERVOUS SYSTEM: Grossly nonfocal. [] EXTREMITIES: Lower extremities with no edema bilaterally. Pulses palpable in the lower extremities, both dorsalis pedis and posterior tibial. [] Discharge Data Studies Completed and Pending Completed Studies During Hospitalization Category Date Time Status XR chest 1V [id number] Routine Exams 05/26/22 10:27 Completed CV. echo complete* [id number] Urgent Ultrasound 05/26/22 10:36 Completed CV. echo lmt w/w contras [id number] Routine Ultrasound 05/27/22 14:30 Completed Pending at discharge Category Date Time Status YARD CLEANER request for service Stat Exams 05/26/22 08:44 Taken Basic Metabolic Panel AM LABS Lab 05/29/22 04:00 Ordered Complete Blood Count w/Auto AM LABS Lab 05/29/22 04:00 Ordered Radiology Impressions Chest X-Ray 05/26/22 10:27 IMPRESSION: 1. Cardiomegaly. 2. Prominent interstitial markings can be seen with pulmonary edema raising concern for congestive heart failure. Laboratory Results WBC 10.9 10^3/uL (4.0-10.0) H 05/28/22 02:52 RBC 5.57 10^6/uL (4.1-5.3) H 05/28/22 02:52 Hgb 16.3 g/dL (11.7-16.6) 05/28/22 02:52 Hct 50.5 % (42.0-52.0) 05/28/22 02:52 MCV 90.7 fl (80-94) 05/28/22 02:52 MCH 29.3 pg (28.0-34.0) 05/28/22 02:52 MCHC 32.3 g/dL (30.0-36.0) 05/28/22 02:52 RDW 14.4 % (12.1-15.1) 05/28/22 02:52 Plt Count 282 10^3/cmm (130-400) 05/28/22 02:52 MPV 9.5 fL (7.4-10.4) 05/28/22 02:52 Neut % (Auto) 69.0 % 05/28/22 02:52 Lymph % (Auto) 24.3 % 05/28/22 02:52 [place] % (Auto) 5.3 % 05/28/22 02:52 Eos % (Auto) 0.7 % 05/28/22 02:52 Baso % (Auto) 0.4 % 05/28/22 02:52 Neut # (Auto) 7.51 10^3/uL (1.8-7.7) 05/28/22 02:52 Lymph # (Auto) 2.7 10^3/uL (0.8-4.8) 05/28/22 02:52 [place] # (Auto) 0.6 10^3/uL (0.2-0.9) 05/28/22 02:52 Eos # (Auto) 0.1 10^3/uL (0.0-0.8) 05/28/22 02:52 Baso # (Auto) 0.0 10^3/uL (0.0-0.1) 05/28/22 02:52 Nucleated RBC % (auto) 0 % 05/28/22 02:52 Nucleated RBCs # 0.0 /100WBC 05/28/22 02:52 Sodium 133 mmol/L (136-145) L 05/28/22 02:52 Potassium 4.5 mmol/L (3.5-5.1) 05/28/22 02:52 Chloride 99 mmol/L (98-107) 05/28/22 02:52 Carbon Dioxide 23 mmol/L (22-29) 05/28/22 02:52 Anion Gap 15.5 (5-19) 05/28/22 02:52 BUN 49 mg/dL (6-20) H 05/28/22 02:52 Creatinine 2.5 mg/dL (0.7-1.2) H 05/28/22 02:52 GFR Calculation 28.2 mL/min (90-130) L 05/28/22 02:52 Glucose 97 mg/dL (65-115) 05/28/22 02:52 Calculated Osmolality 289 mOsm/kg (285-295) 05/28/22 02:52 Calcium 9.0 mg/dL (8.5-10.5) 05/28/22 02:52 Total Bilirubin 0.5 mg/dL (0.15-1.2) 05/26/22 08:34 AST 29 U/L (0-40) 05/26/22 08:34 ALT 45 U/L (0-41) H 05/26/22 08:34 Alkaline Phosphatase 179 U/L (40-130) H 05/26/22 08:34 Troponin T Baseline 18 ng/L (0-15) H 05/26/22 08:34 Troponin T Hi Sens 6Hr 4803 ng/L (0-15) H 05/26/22 14:28 Troponin T Hi Sens 6Hr Delta 4785 ng/L (0-12) H* 05/26/22 14:28 Total Protein 8.0 g/dL (6.6-8.7) 05/26/22 08:34 Albumin 3.7 g/dL (3.5-5.2) 05/26/22 08:34 Globulin 4.3 g/dL (1.3-4.6) 05/26/22 08:34 Vitals Last Vital Signs Temp 98.2 F 05/27/22 23:00 Pulse 54 L 05/28/22 09:18 Resp 19 H 05/27/22 23:00 BP 133/102 05/27/22 23:00 Pulse Ox 96 05/28/22 09:18 O2 Del Method 05/28/22 09:18 Discharge Plan Discharge Patient Disposition: Home Condition: Stable Prescriptions: New clopidogrel 75 mg Tablet 75 mg PO DAILY Qty: 90 3RF aspirin 81 mg Tablet,Delayed Release (Dr/Ec) 81 mg PO DAILY Qty: 90 3RF metoprolol tartrate 50 mg Tablet 50 mg PO BID@0900,2100 Qty: 120 3RF atorvastatin 80 mg tablet 80 mg PO DAILY Qty: 90 3RF Continued amlodipine 10 mg Tablet 10 mg PO DAILY Lasix 20 mg Tablet 20 mg PO DAILY Discontinued metoprolol tartrate 50 mg Tablet 50 mg PO DAILY Discharge Orders: Discharge Order (Routine); Ordered 05/28/22 Ordered By: Drew Galvan Referrals: Gavin Goodwin DO [Physician] - (Patient will need a new PCP appointment w/ first provider available @ [facility] Drew Galvan M.D [Physician] - 6 Weeks (you will get this appt when you see Meka..) Meka Mustafa FNP [Nurse Practitioner] - 06/04/22 12:45 pm Discharge Diet: Cardiac and Low Salt Discharge Activity: Increase activity as tolerated Patient Instructions: Metoprolol (By mouth), Aspirin (By mouth), Atorvastatin (By mouth), Clopidogrel (By mouth), Heart Healthy Diet, Coronary Angioplasty (DC), Opioid Safety Activity Restrictions/Additional Instructions: Please do not lift more than 10 pounds of weight for the next 5 days Discharge Attestations Time Spent in Discharge Care*: greater than 30 min Quality Metrics Clinical Quality Measures [ Acute Myocardial Infaction { Clinical Trial Participant: No; Contraindication to aspirin: None; Aspirin prescribed; Contraindication to statin: None; Statin prescribed; Contraindication to PCI: None; PCI performed;}] Coding Level of Care Code Acute g FW SC note Diagnoses ST elevation myocardial infarction (STEMI) I21.3 Hypertension I10 Tobacco abuse Z72.0 CKD (chronic kidney disease) N18.9 HFrEF (heart failure with reduced ejection fraction) I50.20
[2022-05-28 14:00] VITALS: PULSE 56
[2022-05-28 14:52] VITALS: BP 122/81; PULSE 65; RESP 19; TEMP 36.8; O2SAT 96
--- NOTE | 2022-05-28 16:07 | PC.NURSE ---
Patient left with mother to personal vehicle. Extensive education provided on follow up care, S/S of heart attack, Life vest, and home medications. Patient and family had no questions. Written education also provided to patient.
== END 2022-05-28 15:45 | disposition home or self-care (01) | DRG 247 ==
LOC: ER 10:19 → ICU 10:43
PROVIDERS: Admitting Provider Internal Medicine; Emergency Provider Family Medicine; PCP Nurse Practitioner Family; Visit Provider Internal Medicine
PROC: 027034Z Dilation of Coronary Artery, One Artery with Drug-eluting Intraluminal Device, Percutaneous Approach (ICD-10-PCS; principal; 2022-05-26 09:00)
PROC: 027034Z Dilation of Coronary Artery, One Artery with Drug-eluting Intraluminal Device, Percutaneous Approach (ICD-10-PCS; 2022-05-26 09:00)
DX: I21.02 ST elevation (STEMI) myocardial infarction involving left anterior descending coronary artery (principal); I13.0 Hypertensive heart and chronic kidney disease with heart failure and stage 1 through stage 4 chronic kidney disease, or unspecified chronic kidney disease; I50.22 Chronic systolic (congestive) heart failure; F17.200 Nicotine dependence, unspecified, uncomplicated; N18.9 Chronic kidney disease, unspecified; I44.7 Left bundle-branch block, unspecified; I25.10 Atherosclerotic heart disease of native coronary artery without angina pectoris
CPT/HCPCS: 36415; 71045; 80048; 80053; 84484; 85025; 85347; 92920; 93005; 93306; 93454; 96374; 96375; 99152; 99153; 99291; C1725; C1769; C1874; C1887; C1894; C8924; C9600; J1644; J1940; J2250; J2270; J2405; J3010; J3490; J7030; Q9956; Q9967

== ENCOUNTER → 2022-06-04 14:00 | Outpatient (BNVA) | payer MEDICAID, SELFPAY | PROVIDERS: PCP Nurse Practitioner Family; Visit Provider Nurse Practitioner Family | DX: I50.20 Unspecified systolic (congestive) heart failure (principal); I25.10 Atherosclerotic heart disease of native coronary artery without angina pectoris | CPT/HCPCS: 80048; 83880 ==

== ENCOUNTER 2022-08-27 07:44 | Outpatient (CLI) | payer MEDICAID, SELFPAY ==
--- NOTE | 2022-08-27 07:58 | USCV_ITS ---
John Hale Age: 47 Gender: M : 1975 Exam Date: 08/27/2022 08:05 Ordering Phys: Meka Mustafa Technologist: Mercedes Alexis Exam Location: [facility] [place] Indication: Low ef for placement of ICD BP: 127 / 70 HR: 68 Rhythm: Sinus Technical Quality: Adequate MEASUREMENTS (Male / Female) Normal Values 2D ECHO LV Diastolic Diameter PLAX 5.4 cm 4.2 - 5.9 / 3.9 - 5.3 cm LV Systolic Diameter PLAX 4.8 cm LV Chamber Size 4.6 cm IVS Diastolic Thickness 1.1 cm 0.6 - 1.0 / 0.6 - 0.9 cm IVS Systolic Thickness 1.2 cm LVPW Diastolic Thickness 1.1 cm 0.6 - 1.0 / 0.6 - 0.9 cm LVPW Systolic Thickness 1.3 cm RV Chamber Size 2.8 cm LVOT Diameter 2.0 cm LV Ejection Fraction 2D Teich 24.4 % LV Ejection Fraction MOD 2C 34.8 % LV Ejection Fraction 2C AL 33.3 % LA Diameter 4.0 cm LA Width 3.7 cm LA Height 5.2 cm RA Width 4.8 cm RA Height 4.0 cm Aorta at Sinotubular Diameter 3.1 cm IVC Diameter 1.5 cm M-MODE Aortic Annulus Diameter 3.4 cm LA Ao Ratio MM 1.2 MV E Point Septal Separation 1.1 cm FINDINGS Left Ventricle Diffuse hypokinesia of the left ventricular ejection fraction of 34%. Mildly dilated LV cavity. Right Ventricle The right ventricle is normal in size and function. Right Atrium The right atrium is normal in size. Left Atrium Mildly increased left atrial size. Mitral Valve Mild to moderate mitral valve regurgitation. Minimally thickened mitral valve Aortic Valve Trace aortic valve regurgitation. Tricuspid Valve Mild tricuspid valve regurgitation. Pulmonic Valve No gross abnormalities noted Pericardium No pericardial effusion. Aorta Normal aortic annulus size. IVC Normal inferior vena cava. CONCLUSIONS Diffuse hypokinesia of the left ventricular ejection fraction of 34%. Mildly dilated LV cavity Mildly increased left atrial size. Mild to moderate mitral valve regurgitation. Minimally thickened mitral valve Trace aortic valve regurgitation. Mild tricuspid valve regurgitation. There is no pericardial effusion. There are no intracardiac masses. Compared to the study from 05/27/2022, there is significant improvement of the LV ejection fraction, from 15 - 20% to 34%. Dr Jacquie Fischer MD [facility] (Electronically Signed) Final Date: 27 August 2022 11:59 S
== END 2022-08-27 07:45 | disposition home or self-care (01) ==
PROVIDERS: PCP Family Medicine; Visit Provider Nurse Practitioner Family
DX: I50.20 Unspecified systolic (congestive) heart failure (principal); I08.3 Combined rheumatic disorders of mitral, aortic and tricuspid valves
CPT/HCPCS: 93308

== ENCOUNTER 2023-01-25 06:15 | Outpatient (CLI) | payer MEDICAID, SELFPAY ==
--- NOTE | 2023-01-25 | USCV_ITS ---
John Hlae Age: 47 Gender: M : 1975 Exam Date: 01/25/2023 06:30 Ordering Phys: Gela Liz MD Technologist: Gloria Pemberton Exam Location: [facility] [place] Indication: CAD, CARDIOMYOPATHY BP: 112 / 70 HR: 62 Rhythm: Sinus Technical Quality: Adequate MEASUREMENTS (Male / Female) Normal Values 2D ECHO LVOT Diameter 2.0 cm LV Ejection Fraction MOD 2C 25.9 % LV Ejection Fraction 2C AL 24.6 % LA Diameter 4.1 cm LA Width 4.9 cm LA Height 6.3 cm RA Width 4.2 cm RA Height 5.9 cm Aorta at Sinotubular Diameter 2.6 cm IVC Diameter 1.3 cm M-MODE Aortic Annulus Diameter 2.9 cm LA Ao Ratio MM 1.3 MV E Point Septal Separation 1.5 cm DOPPLER Right Atrial Pressure 3.0 mmHg FINDINGS Left Ventricle Right Ventricle Right Atrium Left Atrium Mitral Valve Aortic Valve Tricuspid Valve Pulmonic Valve Pericardium Aorta IVC CONCLUSIONS Technically limited quality echocardiogram because of poor ultrasonic windows. LV systolic function is severely reduced with EF of 25-30%. Moderate global hypokinesis. Severe apical hypokinesis. Mild mitral regurgitation. Right echocardiogram from [facility] 08/27/2022, no significant changes are seen. Drew Galvan MD (Electronically Signed) Final Date: 25 January 2023 14:37 S
== END 2023-01-25 06:16 | disposition home or self-care (01) ==
LOC: RAD 06:16
PROVIDERS: PCP Family Medicine; Visit Provider Internal Medicine Interventional Cardiology
DX: I25.10 Atherosclerotic heart disease of native coronary artery without angina pectoris (principal); I42.9 Cardiomyopathy, unspecified; I34.0 Nonrheumatic mitral (valve) insufficiency
CPT/HCPCS: 93308

== ENCOUNTER 2024-04-24 07:30 | Outpatient (CLI) | payer MEDICAID, SELFPAY ==
--- NOTE | 2024-04-24 07:45 | USCV_ITS ---
John Hale Age: 48 Gender: M : 1975 Exam Date: 04/24/2024 07:58 Ordering Phys: Meka Mustafa Technologist: Jonathan Marin [place] [facility] [place]: cardiomyopathy BP: / HR: 62 Rhythm: Sinus Technical Quality: Adequate MEASUREMENTS (Male / Female) Normal Values 2D ECHO LV Diastolic Diameter PLAX 5.8 cm 4.2 - 5.9 / 3.9 - 5.3 cm IVS Diastolic Thickness 1.1 cm 0.6 - 1.0 / 0.6 - 0.9 cm IVS Systolic Thickness 1.1 cm LVPW Diastolic Thickness 1.8 cm 0.6 - 1.0 / 0.6 - 0.9 cm LVPW Systolic Thickness 2.5 cm LVOT Diameter 2.0 cm LV Ejection Fraction 2D Teich 10.6 % LV Ejection Fraction MOD 4C 24.2 % LV Ejection Fraction MOD 2C 33.8 % LV Ejection Fraction 2C AL 32.7 % LA Diameter 4.3 cm RA Systolic Volume 4C AL 87.0 ml RA Systolic Volume 4C MOD 88.2 ml LA Sys Volume AL 111.2 cm cubed LA Sys Volume Index AL 46.8 cm cubed/m squared Aorta at Sinotubular Diameter 2.5 cm IVC Diameter 1.4 cm M-MODE LA Ao Ratio MM 1.6 AV Cusp Separation MM 1.8 cm DOPPLER AV Peak Velocity 116.0 cm/s LVOT Peak Velocity 93.0 cm/s AV Area Cont Eq vti 2.5 cm squared AV Area Cont Eq pk 2.5 cm squared MV Peak Velocity 153.0 cm/s MV Area PHT 4.6 cm squared Mitral E to A Ratio 1.6 TV Peak Velocity 304.0 cm/s TR Peak Velocity 338.0 cm/s TR Peak Gradient 45.7 mmHg TR Mean Velocity 233.0 cm/s TR Mean Gradient 24.7 mmHg TR Velocity Time Integral 116.1 cm PV Peak Velocity 107.0 cm/s RV Ejection Time 0.2 s FINDINGS Left Ventricle Left ventricle is dilated. LV systolic function is moderate to severely reduced with EF of 30-35%. Moderate to severe global hypokinesis seen. Septal motion is consistent with conduction abnormality. Right Ventricle The right ventricle is normal in size and function. Right Atrium Dilated Left Atrium Dilated Mitral Valve Structurally normal mitral valve. Mild mitral regurgitation. Aortic Valve Structurally normal aortic valve. No significant stenosis. Mild aortic regurgitation. Tricuspid Valve Mild tricuspid regurgitation. Insufficient TR jet to calculate RVSP Pulmonic Valve Not well visualized Pericardium Normal pericardium without effusion. Aorta Normal ascending aorta dimension. IVC Not well visualized. CONCLUSIONS LV systolic function is moderate to severely reduced with EF of 30-35%. Left ventricle is dilated. Biatrial enlargement Mild mitral regurgitation Mild aortic regurgitation Mild tricuspid regurgitation Compared to prior echocardiogram from 2022, LV systolic function appears slightly improved. Drew Galvan MD (Electronically Signed) Final Date: 27 April 2024 18:07 S
== END 2024-04-24 07:31 | disposition home or self-care (01) ==
LOC: RAD 07:31
PROVIDERS: PCP Family Medicine; Visit Provider Nurse Practitioner Family
DX: I50.20 Unspecified systolic (congestive) heart failure (principal); I50.1 Left ventricular failure, unspecified; I51.7 Cardiomegaly; I34.0 Nonrheumatic mitral (valve) insufficiency; I35.1 Nonrheumatic aortic (valve) insufficiency; I36.1 Nonrheumatic tricuspid (valve) insufficiency
CPT/HCPCS: 93306

== ENCOUNTER → 2025-07-15 15:59 | Outpatient (BNVA) | payer MEDICAID, SELFPAY | PROVIDERS: PCP Family Medicine; Visit Provider Internal Medicine Cardiovascular Disease | DX: R07.9 Chest pain, unspecified (principal); R06.02 Shortness of breath; I44.7 Left bundle-branch block, unspecified | CPT/HCPCS: 36415; 80048; 83880; 93005 ==

== ENCOUNTER 2025-07-28 06:44 | Outpatient (CLI) | payer MEDICAID, SELFPAY ==
--- NOTE | 2025-07-28 07:00 | USCV_ITS ---
John Hale Age: 50 Gender: M : 1975 Exam Date: 07/28/2025 07:02 Ordering Phys: Jacquie Fischer MD ([email or web address]) Technologist: Exam Location: [facility] – [place] Indication: cardiomyopathy BP: 120 / 70 HR: 61 Rhythm: Sinus Technical Quality: Adequate MEASUREMENTS (Male / Female) Normal Values 2D ECHO LVOT Diameter 1.9 cm LV Ejection Fraction MOD 4C 50.1 % LV Ejection Fraction MOD 2C 40.2 % LV Ejection Fraction 2C AL 39.3 % LA Diameter 3.6 cm RA Systolic Volume 4C AL 52.7 ml RA Systolic Volume 4C MOD 51.4 ml LA Sys Volume AL 127.8 cm cubed LA Sys Volume Index AL 56.2 cm cubed/m squared Aorta at Sinotubular Diameter 3.3 cm M-MODE LA Ao Ratio MM 1.4 AV Cusp Separation MM 2.7 cm DOPPLER AV Peak Velocity 137.0 cm/s LVOT Peak Velocity 116.0 cm/s AV Area Cont Eq vti 2.7 cm squared AV Area Cont Eq pk 2.4 cm squared MV Peak Velocity 130.0 cm/s MV Area PHT 3.7 cm squared Mitral E to A Ratio 1.2 TV Peak Velocity 262.0 cm/s TR Peak Velocity 293.0 cm/s TR Peak Gradient 34.3 mmHg TV Peak E Velocity 101.0 cm/s PV Peak Velocity 120.0 cm/s FINDINGS Left Ventricle Severe diffuse hypokinesis of the septum, anteroseptum, inferior wall and the LV apex. Ejection fraction around 30- 35 %, (visual).moderately increased left ventricular cavity size. Grade III/IV diastolic dysfunction (restrictive filling pattern), severely elevated filling pressures. Right Ventricle Normal right ventricular size with slightly diminished ejection fraction Right Atrium Normal right atrial size. Left Atrium Moderately increased left atrial size. Severely increased left atrial [id number] ml/m squared. IA Septum Normal appearance of the interatrial septum. Mitral Valve Thickened mitral valve. Moderately severe, eccentric mitral valve regurgitation. Aortic Valve Trace to mild aortic valve regurgitation. Tricuspid Valve Mild tricuspid valve regurgitation. Estimated pulmonary artery peak systolic pressure 37 mmHg Pulmonic Valve No gross abnormalities Pericardium No pericardial effusion. Aorta Normal aortic annulus size. IVC Normal IVC diameter. CONCLUSIONS Severe diffuse hypokinesis of the septum, anteroseptum, inferior wall and the LV apex. Ejection fraction around 30- 35 %, (visual).moderately increased left ventricular cavity size. Grade III/IV diastolic dysfunction (restrictive filling pattern), severely elevated filling pressures. Normal right ventricular size with slightly diminished ejection fraction. Severely increased left atrial ml/m squared. Moderately severe, eccentric mitral valve regurgitation. Thickened mitral valve. Trace to mild aortic valve regurgitation. Mild tricuspid valve regurgitation. Estimated pulmonary artery peak systolic pressure 37 mmHg There is no pericardial effusion. There are no intracardiac masses. Compared to the study from 04/24/2024, there is worsening of the mitral regurgitation. Dr Jacquie Fischer MD FAC (Electronically Signed) Final Date: 30 July 2025 19:24 S
== END 2025-07-28 06:45 | disposition home or self-care (01) ==
LOC: RAD 06:45
PROVIDERS: PCP Family Medicine; Visit Provider Internal Medicine Cardiovascular Disease
DX: R06.09 Other forms of dyspnea (principal); I42.9 Cardiomyopathy, unspecified; I51.89 Other ill-defined heart diseases; I51.7 Cardiomegaly; I34.0 Nonrheumatic mitral (valve) insufficiency; I35.1 Nonrheumatic aortic (valve) insufficiency; I36.1 Nonrheumatic tricuspid (valve) insufficiency
CPT/HCPCS: 93306